=== PATIENT | female | born 1975 | race African-American/Black ===

== ENCOUNTER 2017-01-18 17:24 | Emergency (ER) | payer OTHER ==
[~2017-01-18] VITALS: Ht 160 cm; Wt 90.7 kg
[~2017-01-18 17:24] MED LIST: CORTISPORIN OTI10 M2 OT; HYDROCODONE-AP1 EAC6 PO; KEFLEX500 MG PO; NOHOMEMEDICATIONS; PHENTERMINE HCL15 MG
[2017-01-18 17:29] VITALS: BP 131/90
== END 2017-01-18 17:51 | disposition home or self-care (01) ==
LOC: ER 17:24
DX: S51.011D Laceration without foreign body of right elbow, subsequent encounter (principal); S61.212D Laceration without foreign body of right middle finger without damage to nail, subsequent encounter; S61.214D Laceration without foreign body of right ring finger without damage to nail, subsequent encounter; Z98.890 Other specified postprocedural states; X58.XXXD Exposure to other specified factors, subsequent encounter; Y92.89 Other specified places as the place of occurrence of the external cause; Y99.8 Other external cause status

== ENCOUNTER 2019-05-17 13:48 | Emergency (ER) | payer OTHER ==
[~2019-05-17] VITALS: Ht 160 cm; Wt 95.3 kg
[2019-05-17] MEDS ORDERED: ADIPEX-P37.5 MG PO (13:58)
[2019-05-17] MEDS ORDERED: NORCO 7.5-3251 EACH PO (15:24)
[2019-05-17 17:32] VITALS: BP 120/78
== END 2019-05-17 17:34 | disposition home or self-care (01) ==
LOC: ER 13:48
DX: S93.104A Unspecified dislocation of right toe(s), initial encounter (principal); Z98.890 Other specified postprocedural states; W23.0XXA Caught, crushed, jammed, or pinched between moving objects, initial encounter; Y93.89 Activity, other specified; Y92.810 Car as the place of occurrence of the external cause; Y99.8 Other external cause status